=== PATIENT | female | born 1960 | race Caucasian/White ===

== ENCOUNTER → 2022-04-12 | Outpatient (CLI) | payer SELFPAY ==
[2022-04-12 12:22] LABS: Absolute Lymphocyte Count 2.84 X10^3/uL (0.83-4.51); Absolute Neutrophil Count 3.7 X10^3/uL (2.0-7.7); Basophil# 0.07 X10^3/uL; Eosinophil# 0.18 X10^3/uL; Eosinophils% 2.5 % (0-5); Hemoglobin 14.3 g/dL (12.0-15.0); Lymphocyte # 2.84 X10^3/ul (0.83-4.51); Lymphocyte % 38.7 % (19-41); Mean Corp Hgb Conc 33.3 g/dL (32-36); Mean Corpuscular Hgb 31.2 pg (27.0-32.0); Mean Corpuscular Volume 93.7 fL (81-99); Mean Platelet Vol. 10.4 fl (6.2-12.0); Monocyte# 0.56 X10^3/uL; Monocyte% 7.6 % (0-10); NRBC Flagged by Analyzer 0 % (0-5); Neutrophil # 3.68 X10^3/uL (2.7-7.7); Neutrophil % 50.1 % (47-70); Platelet Count 388 K/mm3 (150-450); RBC Distribution Width CV 13.2 % (11.6-14.6); RBC Distribution Width SD 45.2 fl (35.1-43.9); Red Blood Count 4.59 M/mm3 (4.2-5.4); White Blood Count 7.3 K/mm3 (4.4-11.0)
[2022-04-12 12:45] LABS: Hemoglobin A1c 5.6 % (3.8-5.6)
[2022-04-12 12:57] LABS: AST(SGOT) 26 U/L (15-37); Alanine Aminotransfer ALT/SGPT 45 U/L (13-56); Albumin, Serum 3.8 g/dL (3.2-5.0); Alkaline Phosphatase 66 U/L (45-117); Anion Gap 5 (5-15); BUN 11 mg/dL (7-18); BUN/Creat Ratio 15.6 RATIO (10-20); Calcium,Total 9.4 mg/dL (8.5-10.1); Chloride 104 mmol/L (98-107); Cholesterol 265 mg/dL (200); Creatinine, Serum 0.71 mg/dL (0.55-1.02); EST Glomerular Filtration Rate 89 mL/min (>60); Est Glom Filt Rate - Afr Amer 107 mL/min (>60); Globulin 3.9 g/dL (2.2-4.2); Glucose 106 mg/dL (74-106); High Density Lipoprotein 58 mg/dL; Protein, Total 7.7 g/dL (6.4-8.2); Sodium Level 137 mmol/L (136-145); T4 Free Direct 1.13 ng/dL (0.76-1.46); Thyroid Stim Hormone (TSH) 0.73 uIU/mL (0.358-3.74); Triglycerides 165 mg/dL; Very Low Density Lipoprotein 33 mg/dL (5-40)
== END | disposition home or self-care (01) ==
LOC: BIMLAB 09:42
PROVIDERS: PCP Internal Medicine; Visit Provider Internal Medicine
DX: R73.03 Prediabetes (principal); K76.0 Fatty (change of) liver, not elsewhere classified; E78.5 Hyperlipidemia, unspecified
CPT/HCPCS: 36415; 80053; 80061; 83036; 84439; 84443; 85025

== ENCOUNTER 2025-03-14 20:04 | Emergency (ER) | payer MEDICARE, OTHER, SELFPAY ==
[2025-03-14 20:05] VITALS: BP 144/77; PULSE 93; RESP 18; TEMP 36.6; O2SAT 98; BMI 34.1
--- NOTE | 2025-03-14 20:21 | EX.ED.VIS.EY ---
HPI History of Present Illness Chief Complaint: Eye Problem [facility] Medical History (Updated 04/12/22 @ 10:[address] Gabriel Oliveira MD) Preventative health care Hyperlipidemia Borderline type 2 diabetes mellitus Fatty liver History of radioactive iodine thyroid ablation Thyroid disease Goiter Back pain Seasonal allergies Home Medications ?Medication ?Instructions ?Recorded ?Last Taken ?Type multivitamin 1 tab PO DAILY 04/12/22 Unknown History ciprofloxacin HCl 0.3 % eye drops 2 drp RIGHT EYE Q6H 5 days #10 mL 03/14/25 Unknown Rx Allergy/AdvReac Type Severity Reaction Status Date / Time No Known Allergies Allergy Verified 03/14/25 20:06 Family History (Updated 03/18/22 @ 16:42 by Vero Kc) Father Mitral valve disorder H/O ulcer disease Mother Uterine cancer Sister Uterine cancer Grandfather Parkinson disease Surgical History (Updated 03/18/22 @ 16:40 by Vero Kc) History of cholecystectomy History of tonsillectomy Social History (Updated 04/12/22 @ 08:58 by Lin Bernal) Smoking Status: Never smoker alcohol intake: current alcohol intake frequency: holidays/special occasions only substance use type: does not use what type of physical activity do you participate in: none EXAM Physical Exam Const Vital Signs: 03/14/25 20:05 Temperature 97.8 F Temperature Source Oral Pulse Rate 93 Respiratory Rate 18 Blood Pressure 144/77 H Blood Pressure Mean 99 Pulse Ox 98 Oxygen Delivery Method Room Air [facility] MDM Narrative Medical decision making narrative: HISTORY OF PRESENT ILLNESS: Chief complaint: eye pain and redness 65-year-old female history of type 2 diabetes, hyperlipidemia and fatty liver presents with concern for redness and pain and discharge from left eye. The patient states there is no trauma. Notes she wears corrective eyeglasses but no contacts. No foreign bodies noted. REVIEW OF SYSTEMS: Pertinent positives: Left eye pain and drainage Pertinent negatives: Headache PHYSICAL EXAM: Nursing triage notes reviewed, Vital signs reviewed Constitutional: please see mdm HENT: MMM Eyes: Pupils equal round and reactive to light, Extraocular muscles intact, chemosis noted, conjunctival injection noted, some conjunctival edema on the left of the eye noted, pupils are equal reactive to light, fluorescein staining without uptake or sign of corneal abrasion. Negative Dequan sign. Visual acuity 20/30 OS, 20/25 OD. No proptosis noted, no pain with extraocular muscle movement. Neck: No stridor, no JVD, full neck ROM MEDICAL DECISION MAKING: Chief Complaint: please see HPI MDM Narrative: Patient was initially hemodynamically stable, afebrile non-toxic. Exam consistent with likely conjunctivitis. Will cover for bacterial conjunctivitis ciprofloxacin drops. Gave first dose here. Provided tetracaine eyedrops for symptomatic relief. Risk and benefits of tetracaine eyedrops were discussed with patient who accepted risk and benefits. I considered the following differential diagnosis: Acute conjunctivitis, dacryocystitis, or hordeolum or stye. Exam not consistent with dacryocystitis, hordeolum or stye The patient and/or family, caregivers express understanding. The patient and/or family, caregivers agrees with the plan. Shared decision making: I will have a discussion with the patient and or visitors regarding risk/benefits of further testing or admission. They will be made aware of of the risk/benefits inherent in this decision they will be given the opportunity to voice understanding. Total critical care time today provided was at least 0 minutes. This excludes separately billable procedures. Critical care time (if documented) is secondary to the patient having high probability of clinically significant/life threatening deterioration in the patient's condition which required my urgent intervention. Impression: 1. Acute pain 2. Acute conjunctivitis Dispo: Discharge home This note was generated with [employer] dictation software. It may contain incorrect words, spelling, and punctuation that were not noted in review of the chart prior to signing. Discharge Plan Triage Chief Complaint: Eye Problem ED Provider: Terry Bowman Dx/Rx/DC Orders Instructions: ED Conjunctivitis, Bacterial Prescriptions: New ciprofloxacin HCl 0.3 % drops 2 drp RIGHT EYE Q6H 5 Days Qty: 10 0RF Rx Instructions: administer while awake No Action multivitamin Tablet 1 tab PO DAILY Primary Care Provider: Court Jin Referrals: Fernando Persaud MD [Med Staff - Active Staff] - Activity Restrictions/Additional Instructions: Thank you for trusting us with your care today! Please take antibiotic drops as prescribed. Please take Tylenol (2 pills, 650 mg), ibuprofen (2 pills, 400 mg) every 6 hours as needed for pain and fever control. Please return to the emergency department if your symptoms change or worsen. Specifically if you lose vision, develop severe headache, vomiting, slurred speech. Please use provided tetracaine drops sparingly. Use 2 drops as often as every 12 hours as needed for pain Please follow with Ophthalmology for further outpatient evaluation and management. Print Language: Croatian Disposition Disposition: Home, Self Care Discharge Date/Time: 03/14/25 21:23
[2025-03-14] MEDS: Fluorescein 1 MG STRIP 1 STRIP EACH EYE (20:37)
[2025-03-14] MEDS: Tetracaine 0.5% Ophthalmic Bottle 1 DRP EACH EYE (20:38)
[2025-03-14] MEDS: Ciprofloxacin 0.3% 2.5ml Bottle 2 DRP LEFT EYE (21:17)
[2025-03-14 21:22] VITALS: BP 144/77; PULSE 80; RESP 18; TEMP 36.6; O2SAT 98
== END 2025-03-14 21:23 | disposition home or self-care (01) ==
PROVIDERS: Emergency Provider Emergency Medicine; PCP Family Medicine; Visit Provider Emergency Medicine
DX: H11.422 Conjunctival edema, left eye (principal); E11.9 Type 2 diabetes mellitus without complications; E78.5 Hyperlipidemia, unspecified; Z97.3 Presence of spectacles and contact lenses; H10.32 Unspecified acute conjunctivitis, left eye
CPT/HCPCS: 99283